=== PATIENT | male | born 1965 | race Caucasian/White ===

== ENCOUNTER 2016-07-14 21:51 | Inpatient (IN) | payer BC, OTHER ==
[~2016-07-14] VITALS: Ht 167.6 cm; Wt 62.1 kg
[~2016-07-14 21:51] MED LIST: ACID1TAB12 PO; AMLO5TAB4 PO; BLOO-129 IN; GABA100C PO; HYDR-548 PO; Hydralazine Hcl PO; INSU100V7 SQ; SEVE800T8 PO
[2016-07-14] MEDS ORDERED: ONDANSETRON HCL/PF 4 MG/2 ML VIAL ONE (22:29)
[2016-07-14] MEDS ORDERED: HYDROMORPHONE 1 MG/1 ML DISP.SYRIN ONE (22:29)
[2016-07-14] MEDS ORDERED: ASPIRIN 81 MG TAB.CHEW ONE (22:29)
[2016-07-14] MEDS ORDERED: NITROGLYCERIN 0.4 MG/TAB BOTTLE ONE (22:29)
[2016-07-14] MEDS ORDERED: NITROGLYCERIN 0.4 MG/TAB BOTTLE SL ONE (22:30)
[2016-07-14] MEDS ORDERED: NITROGLYCERIN PACKET 1 GM PACKET TD ONE (22:30)
[2016-07-14] MEDS ORDERED: NITROGLYCERIN PACKET 1 GM PACKET ONE (22:30)
[2016-07-14] MEDS ORDERED: ASPIRIN 81 MG TAB.CHEW PO ONE (22:30)
[2016-07-14] MEDS ORDERED: HYDROMORPHONE INJ 2 MG/ML DISP.SYRIN IV ONE (22:30)
[2016-07-14] MEDS ORDERED: ONDANSETRON HCL/PF 4 MG/2 ML VIAL IVP ONE (22:30)
[2016-07-14 22:38] LABS: BASOPHILS # (AUTO) 0.1 /CMM (0.0-0.2); BASOPHILS % (AUTO) 0.7 % (0.0-2.0); DIFF TOTAL % 100 %; EOSINOPHILS # (AUTO) 0.2 /CMM (0.0-0.7); HEMATOCRIT 36 % (39-51); LYMPHOCYTES # (AUTO) 2.4 /CMM (0.8-4.8); LYMPHOCYTES % (AUTO) 23.1 % (20.0-44.0); MEAN CORPUSCULAR HEMOGLOBIN 30 PG (26.0-33.0); MEAN CORPUSCULAR HGB CONC 33 g/dl (31.0-36.0); MEAN CORPUSCULAR VOLUME 90 fL (80-96); MONOCYTES # (AUTO) 1.2 /CMM (0.1-1.30); NEUTROPHILS # (AUTO) 6.4 /CMM (1.8-8.9); NEUTROPHILS % (AUTO) 62.2 % (43.0-81.0); PLATELET COUNT (AUTO) 171 /CMM (150-450); RED BLOOD CELL COUNT(AUTO) 3.99 MIL/uL (4.5-6.0); WHITE BLOOD COUNT (AUTO) 10.3 K/uL (4.3-11.0)
[2016-07-14 22:48] LABS: ANION GAP 15 (5-14); CALCIUM, SERUM 9.2 mg/dL (8.5-10.1); CARBON DIOXIDE 27 mmol/L (21-32); CHLORIDE 97 mmol/L (98-107); GFR 7 mL/min (>60); GLUCOSE 175 mg/dL (74-106); POTASSIUM 5.3 mmol/L (3.5-5.1); SODIUM SERUM 134 mmol/L (136-145); UREA NITROGEN, BLOOD 40 mg/dL (7-18)
[2016-07-14 22:50] LABS: CREATININE 8.5 mg/dL (0.6-1.3)
[2016-07-14 23:02] LABS: TROPONIN I < 0.017 ng/mL (0.00-0.056)
[2016-07-14 23:04] LABS: ALANINE AMINOTRANSFERASE 27 U/L (12-78); ALBUMIN 3.9 g/dL (3.4-5.0); ASPARTATE AMINOTRANSFERASE 18 U/L (15-37); BILIRUBIN,DIRECT 0.1 mg/dL (0.0-0.2); BILIRUBIN,TOTAL 0.4 mg/dL (0.2-1.0); INDIRECT BILIRUBIN 0.3 mg/dL (0.0-1.1); TOTAL PROTEIN, SERUM 7.9 g/dL (6.4-8.2)
[2016-07-15 01:54] LABS: INR 1.03 (0.87-1.13); PROTHROMBIN TIME 10.6 SECS (9.5-12.7)
[2016-07-15 02:25] VITALS: BP 174/99
[2016-07-15 04:00] VITALS: BP 136/93
[2016-07-15] MEDS ORDERED: hydrALAZINE HCL 25 MG TABLET ONE (04:36)
[2016-07-15] MEDS ORDERED: HYDROCODONE/APAP 10/325MG 1 EA TABLET ONE (04:37)
[2016-07-15] MEDS: HYDROCODONE/APAP 10/325MG 1 EA TABLET PO PRN ×2 (04:45→13:11)
[2016-07-15] MEDS: hydrALAZINE HCL 25 MG TABLET PO SCH ×3 (04:45→21:30)
[2016-07-15] MEDS: BLOOD SUGAR DIAGNOSTIC 1 EACH STRIP IN SCH ×4 (06:37→21:36)
[2016-07-15 08:00] VITALS: BP 85/48
[2016-07-15] MEDS: AMLODIPINE BESYLATE 5 MG TABLET PO SCH (09:00)
[2016-07-15] MEDS: GABAPENTIN 100 MG CAPSULE PO SCH ×3 (09:00→17:00)
[2016-07-15] MEDS: ACIDOPHILUS/BULGARICUS 1 EACH TAB.CHEW PO SCH ×3 (09:01→17:00)
[2016-07-15] MEDS: SEVELAMER CARBONATE 800 MG TABLET PO SCH ×3 (09:01→17:48)
[2016-07-15 12:00] VITALS: BP 105/61
[2016-07-15] MEDS: ATORVASTATIN 10 MG TABLET PO SCH (13:07)
[2016-07-15 16:00] VITALS: BP 107/60
[2016-07-15] MEDS ORDERED: SECONDARY IV SET 1 EA INFUS.SET MC ONE (17:01)
[2016-07-15] MEDS ORDERED: ALBUMIN 25% 25 GM in PREMIX 1 EA IV ONE (18:30)
[2016-07-15 20:00] VITALS: BP 145/93
[2016-07-15] MEDS: INSULIN DETEMIR 100 UNIT/ML CARTRIDGE SQ SCH (21:37)
[2016-07-16] VITALS: BP 142/68
[2016-07-16 04:00] VITALS: BP 148/80
[2016-07-16] MEDS: hydrALAZINE HCL 25 MG TABLET PO SCH ×3 (04:37→21:23)
[2016-07-16 05:42] LABS: BASOPHILS # (AUTO) 0.1 /CMM (0.0-0.2); DIFF TOTAL % 100 %; EOSINOPHILS # (AUTO) 0.3 /CMM (0.0-0.7); EOSINOPHILS % (AUTO) 2.6 % (0.0-6.0); HEMATOCRIT 38 % (39-51); HEMOGLOBIN 12.5 g/dL (13.5-17.5); LYMPHOCYTES # (AUTO) 1.9 /CMM (0.8-4.8); LYMPHOCYTES % (AUTO) 18.6 % (20.0-44.0); MEAN CORPUSCULAR HEMOGLOBIN 30 PG (26.0-33.0); MEAN CORPUSCULAR HGB CONC 33 g/dl (31.0-36.0); MEAN CORPUSCULAR VOLUME 91 fL (80-96); MONOCYTES # (AUTO) 0.9 /CMM (0.1-1.30); MONOCYTES % (AUTO) 8.6 % (2.0-12.0); NEUTROPHILS % (AUTO) 69.2 % (43.0-81.0); PLATELET COUNT (AUTO) 192 /CMM (150-450); RED BLOOD CELL COUNT(AUTO) 4.13 MIL/uL (4.5-6.0); WHITE BLOOD COUNT (AUTO) 10.1 K/uL (4.3-11.0)
[2016-07-16 05:56] LABS: CALCIUM, SERUM 9.1 mg/dL (8.5-10.1); CREATININE 8.5 mg/dL (0.6-1.3); PHOSPHORUS 4.7 mg/dL (2.5-4.9); POTASSIUM 4.5 mmol/L (3.5-5.1)
[2016-07-16] MEDS: BLOOD SUGAR DIAGNOSTIC 1 EACH STRIP IN SCH ×2 (06:37→12:43)
[2016-07-16 08:00] VITALS: BP 144/88
[2016-07-16] MEDS: GABAPENTIN 100 MG CAPSULE PO SCH ×3 (09:09→16:07)
[2016-07-16] MEDS: ACIDOPHILUS/BULGARICUS 1 EACH TAB.CHEW PO SCH ×3 (09:09→16:07)
[2016-07-16] MEDS: SEVELAMER CARBONATE 800 MG TABLET PO SCH ×3 (09:10→17:30)
[2016-07-16] MEDS: AMLODIPINE BESYLATE 5 MG TABLET PO SCH (09:10)
[2016-07-16] MEDS: ATORVASTATIN 10 MG TABLET PO SCH (09:10)
[2016-07-16 12:00] VITALS: BP 146/92
[2016-07-16] MEDS ORDERED: *INSULIN REGULAR(HUMULIN R)HUM 100 UNIT/ML VIAL SQ PRN (13:00)
[2016-07-16] MEDS ORDERED: DEXTROSE 50%-WATER 50 ML DISP.SYRIN IV PRN (13:00)
[2016-07-16] MEDS: HYDROCODONE/APAP 10/325MG 1 EA TABLET PO PRN (13:14)
[2016-07-16] MEDS: BLOOD SUGAR DIAGNOSTIC 1 EACH STRIP VI SCH ×3 (14:23→21:26)
[2016-07-16 16:00] VITALS: BP 116/73
[2016-07-16] MEDS: INSULIN REGULAR, HUMAN 100 UNIT/ML 3 ML VIAL SQ PRN (16:06)
[2016-07-16 20:00] VITALS: BP 123/74
[2016-07-16] MEDS: INSULIN DETEMIR 100 UNIT/ML CARTRIDGE SQ SCH (21:25)
[2016-07-17 04:00] VITALS: BP 122/80
[2016-07-17] MEDS: hydrALAZINE HCL 25 MG TABLET PO SCH ×2 (05:12→13:59)
[2016-07-17 06:52] LABS: BASOPHILS # (AUTO) 0.1 /CMM (0.0-0.2); BASOPHILS % (AUTO) 1.3 % (0.0-2.0); DIFF TOTAL % 100 %; EOSINOPHILS # (AUTO) 0.2 /CMM (0.0-0.7); EOSINOPHILS % (AUTO) 3.3 % (0.0-6.0); HEMATOCRIT 36 % (39-51); HEMOGLOBIN 12.1 g/dL (13.5-17.5); LYMPHOCYTES # (AUTO) 2.1 /CMM (0.8-4.8); LYMPHOCYTES % (AUTO) 34.8 % (20.0-44.0); MEAN CORPUSCULAR HEMOGLOBIN 30 PG (26.0-33.0); MEAN CORPUSCULAR HGB CONC 34 g/dl (31.0-36.0); MEAN CORPUSCULAR VOLUME 90 fL (80-96); MONOCYTES # (AUTO) 0.7 /CMM (0.1-1.30); MONOCYTES % (AUTO) 11.9 % (2.0-12.0); NEUTROPHILS # (AUTO) 2.9 /CMM (1.8-8.9); NEUTROPHILS % (AUTO) 48.7 % (43.0-81.0); PLATELET COUNT (AUTO) 189 /CMM (150-450); RED BLOOD CELL COUNT(AUTO) 3.99 MIL/uL (4.5-6.0); WHITE BLOOD COUNT (AUTO) 5.9 K/uL (4.3-11.0)
[2016-07-17 07:06] LABS: CALCIUM, SERUM 8.5 mg/dL (8.5-10.1); PHOSPHORUS 5.7 mg/dL (2.5-4.9); POTASSIUM 5.2 mmol/L (3.5-5.1)
[2016-07-17 07:26] LABS: CREATININE 11.1 mg/dL (0.6-1.3)
[2016-07-17] MEDS: BLOOD SUGAR DIAGNOSTIC 1 EACH STRIP VI SCH ×3 (07:52→17:17)
[2016-07-17 08:00] VITALS: BP 125/76
[2016-07-17] MEDS: SEVELAMER CARBONATE 800 MG TABLET PO SCH ×3 (08:00→17:17)
[2016-07-17] MEDS: INSULIN REGULAR, HUMAN 100 UNIT/ML 3 ML VIAL SQ PRN ×2 (08:04→17:22)
[2016-07-17] MEDS: ACIDOPHILUS/BULGARICUS 1 EACH TAB.CHEW PO SCH ×3 (08:05→17:17)
[2016-07-17] MEDS: ATORVASTATIN 10 MG TABLET PO SCH (09:00)
[2016-07-17] MEDS: GABAPENTIN 100 MG CAPSULE PO SCH ×3 (09:00→17:17)
[2016-07-17] MEDS ORDERED: REGADENOSON 0.4 MG/5 ML DISP.SYRIN IVP ONE (10:30)
[2016-07-17 12:00] VITALS: BP 144/84
[2016-07-17] MEDS: AMLODIPINE BESYLATE 5 MG TABLET PO SCH (12:38)
[2016-07-17 16:00] VITALS: BP 144/84
== END 2016-07-17 23:07 | disposition home or self-care (01) | DRG 205 ==
LOC: ER 21:57 → TELE1 07-15 00:30 → MEDSG1 07-16 09:28
PROVIDERS: ADMIT Nurse Practitioner Acute Care; ATTEND Nurse Practitioner Acute Care
PROC: 5A1D00Z (ICD-10-PCS; principal; 2016-07-15)
DX: M94.0 Chondrocostal junction syndrome [Tietze] (principal); N18.6 End stage renal disease; I13.2 Hypertensive heart and chronic kidney disease with heart failure and with stage 5 chronic kidney disease, or end stage renal disease; E87.1 Hypo-osmolality and hyponatremia; I50.32 Chronic diastolic (congestive) heart failure; E87.5 Hyperkalemia; Z99.2 Dependence on renal dialysis; E03.9 Hypothyroidism, unspecified; D50.9 Iron deficiency anemia, unspecified; E11.65 Type 2 diabetes mellitus with hyperglycemia; I25.10 Atherosclerotic heart disease of native coronary artery without angina pectoris; Z83.3 Family history of diabetes mellitus; Z87.891 Personal history of nicotine dependence; Z91.14 Patient's other noncompliance with medication regimen; E83.9 Disorder of mineral metabolism, unspecified; Z89.422 Acquired absence of other left toe(s); E11.22 Type 2 diabetes mellitus with diabetic chronic kidney disease
CPT/HCPCS: 36415; 71010-TC; 80048-TC; 80076-TC; 82962-TC; 83735-TC; 83880; 84100-TC; 84484-TC; 85025-TC; 85378-TC; 85730-TC; 87081-TC; 90935-TC; 93307-TC; A4216; A4606; A9502; J1170; J1815; J2405; J2785; P9047; Z7610

== ENCOUNTER 2016-08-08 10:13 | Inpatient (IN) | payer BC, OTHER ==
[~2016-08-08] VITALS: Ht 172.7 cm; Wt 66.2 kg
[2016-08-08] MEDS ORDERED: HYDROMORPHONE 1 MG/1 ML DISP.SYRIN ONE (10:18)
[2016-08-08 10:30] LABS: BASOPHILS # (AUTO) 0.3 /CMM (0.0-0.2); BASOPHILS % (AUTO) 2.6 % (0.0-2.0); DIFF TOTAL % 100 %; EOSINOPHILS # (AUTO) 0.2 /CMM (0.0-0.7); HEMATOCRIT 42 % (39-51); LYMPHOCYTES # (AUTO) 1.8 /CMM (0.8-4.8); LYMPHOCYTES % (AUTO) 15.9 % (20.0-44.0); MEAN CORPUSCULAR HEMOGLOBIN 29 PG (26.0-33.0); MEAN CORPUSCULAR HGB CONC 32 g/dl (31.0-36.0); MEAN CORPUSCULAR VOLUME 91 fL (80-96); MONOCYTES # (AUTO) 0.8 /CMM (0.1-1.30); MONOCYTES % (AUTO) 7.2 % (2.0-12.0); NEUTROPHILS # (AUTO) 8.3 /CMM (1.8-8.9); NEUTROPHILS % (AUTO) 72.3 % (43.0-81.0); PLATELET COUNT (AUTO) 119 /CMM (150-450); RED BLOOD CELL COUNT(AUTO) 4.55 MIL/uL (4.5-6.0); WHITE BLOOD COUNT (AUTO) 11.4 K/uL (4.3-11.0)
[2016-08-08] MEDS ORDERED: HYDROMORPHONE 1 MG/1 ML DISP.SYRIN IV ONE (10:30)
[2016-08-08 10:41] LABS: ANION GAP 17 (5-14); CALCIUM, SERUM 9.1 mg/dL (8.5-10.1); CARBON DIOXIDE 24 mmol/L (21-32); CHLORIDE 102 mmol/L (98-107); GFR 16 mL/min (>60); GLUCOSE 100 mg/dL (74-106); POTASSIUM 4.8 mmol/L (3.5-5.1); SODIUM SERUM 138 mmol/L (136-145); UREA NITROGEN, BLOOD 15 mg/dL (7-18)
[2016-08-08 10:44] LABS: INR 1.15 (0.87-1.13); PROTHROMBIN TIME 12.1 SECS (9.5-12.7)
[2016-08-08 10:47] LABS: ALANINE AMINOTRANSFERASE 34 U/L (12-78); ALBUMIN 4.1 g/dL (3.4-5.0); ASPARTATE AMINOTRANSFERASE 30 U/L (15-37); BILIRUBIN,DIRECT 0.2 mg/dL (0.0-0.2); INDIRECT BILIRUBIN 0.8 mg/dL (0.0-1.1); TOTAL PROTEIN, SERUM 8.6 g/dL (6.4-8.2)
[2016-08-08 10:48] LABS: TROPONIN I < 0.017 ng/mL (0.00-0.056)
[2016-08-08] MEDS ORDERED: CALC667T2 PO (10:54)
[2016-08-08] MEDS ORDERED: HYDR-552 PO (10:54)
[2016-08-08] MEDS ORDERED: INSU100I14 SQ (10:54)
[2016-08-08] MEDS ORDERED: AMLO10TA2 PO (10:54)
[2016-08-08 11:02] LABS: PARTIAL THROMBOPLASTIN TIME > 240 SEC (23-34)
[2016-08-08 11:12] LABS: LACTIC ACID 2.3 mmol/L (0.4-2.0)
[2016-08-08] MEDS ORDERED: IV SET PRIMARY 1 EA INFUS.SET MC ONE (11:18)
[2016-08-08] MEDS ORDERED: IV NS 0.9% 2,000 ML ONE (11:18)
[2016-08-08] MEDS ORDERED: IV NS 0.9% 500 ML IV ONE (11:18)
[2016-08-08 11:29] LABS: *LACTIC ACID REFLEX FLAG YES
[2016-08-08] MEDS ORDERED: IV NS 0.9% 1,000 ML BAG IV ONE (11:30)
[2016-08-08] MEDS ORDERED: VANCOMYCIN 1 GM in IV D5W 250 ML IV ONE (11:30)
[2016-08-08] MEDS ORDERED: GENTAMICIN 80 MG in IV D5W 50 ML IV ONE (11:30)
[2016-08-08] MEDS ORDERED: IV SET PRIMARY PUMP SET 1 EA INFUS.SET MC ONE ×2 (11:36→13:08)
[2016-08-08 12:00] VITALS: BP 124/83
[2016-08-08] MEDS ORDERED: ZOLPIDEM TARTRATE 5 MG TABLET PO PRN (12:30)
[2016-08-08] MEDS ORDERED: MAGNESIUM HYDROXIDE 30 ML UDC PO PRN (12:30)
[2016-08-08] MEDS ORDERED: MAG HYDROX/AL HYDROX/SIMETH 30 ML UDC PO PRN (12:30)
[2016-08-08] MEDS ORDERED: Z GUARD REMEDY 2 OZ OINT TP PRN (12:30)
[2016-08-08] MEDS ORDERED: ONDANSETRON HCL/PF 4 MG/2 ML VIAL IVP PRN (12:30)
[2016-08-08] MEDS ORDERED: ACETAMINOPHEN 325 MG TABLET PO PRN (12:30)
[2016-08-08 12:40] VITALS: BP 124/83
[2016-08-08] MEDS: SEVELAMER CARBONATE 800 MG TABLET PO SCH ×2 (13:00→17:00)
[2016-08-08] MEDS: GABAPENTIN 100 MG CAPSULE PO SCH ×2 (13:00→16:48)
[2016-08-08] MEDS: INSULIN ASPART NOVOLOG 100 UNIT/ML CARTRIDGE SQ SCH ×2 (13:00→16:59)
[2016-08-08] MEDS: CALCIUM ACETATE 667 MG TABLET PO SCH ×2 (13:01→17:00)
[2016-08-08] MEDS ORDERED: FEE PK DOSING 1 MIN EA MC ONE (13:42)
[2016-08-08] MEDS ORDERED: SECONDARY IV SET 1 EA INFUS.SET MC ONE (15:24)
[2016-08-08] MEDS: PIPERACILLIN /TAZOBACTAM 2.25 G in IV D5W 50 ML IV SCH ×2 (15:30→21:19)
[2016-08-08] MEDS: BLOOD SUGAR DIAGNOSTIC 1 EACH STRIP IN SCH ×2 (16:46→21:19)
[2016-08-08] MEDS: INSULIN REGULAR, HUMAN 100 UNIT/ML 3 ML VIAL SQ PRN (16:59)
[2016-08-08 20:00] VITALS: BP 109/76
[2016-08-08 20:06] VITALS: BP 109/73
[2016-08-08] MEDS ORDERED: PIPERACILLIN /TAZOBACTAM 3.375 G in IV D5W 100 ML IV SCH (21:00)
[2016-08-08] MEDS ORDERED: IV NS 0.9% 250 ML IV ONE (21:12)
[2016-08-08] MEDS: DEXTROSE 50%-WATER 50 ML DISP.SYRIN IV PRN (21:42)
[2016-08-08] MEDS ORDERED: INSULIN DETEMIR 100 UNIT/ML CARTRIDGE SQ SCH (22:00)
[2016-08-08 23:00] VITALS: BP 162/78
[2016-08-09] VITALS (9 sets, daily range): BP systolic 110–131; BP diastolic 62–78
[2016-08-09] MEDS: PIPERACILLIN /TAZOBACTAM 2.25 G in IV D5W 50 ML IV SCH (05:38)
[2016-08-09] MEDS: BLOOD SUGAR DIAGNOSTIC 1 EACH STRIP IN SCH ×4 (06:20→21:52)
[2016-08-09] MEDS: DEXTROSE 50%-WATER 50 ML DISP.SYRIN IV PRN (06:24)
[2016-08-09 06:45] LABS: BASOPHILS # (AUTO) 0.1 /CMM (0.0-0.2); BASOPHILS % (AUTO) 1.9 % (0.0-2.0); DIFF TOTAL % 100 %; EOSINOPHILS # (AUTO) 0.3 /CMM (0.0-0.7); EOSINOPHILS % (AUTO) 3.7 % (0.0-6.0); HEMATOCRIT 34 % (39-51); LYMPHOCYTES # (AUTO) 2.2 /CMM (0.8-4.8); LYMPHOCYTES % (AUTO) 32.1 % (20.0-44.0); MEAN CORPUSCULAR HEMOGLOBIN 30 PG (26.0-33.0); MEAN CORPUSCULAR HGB CONC 32 g/dl (31.0-36.0); MEAN CORPUSCULAR VOLUME 92 fL (80-96); MONOCYTES # (AUTO) 0.9 /CMM (0.1-1.30); MONOCYTES % (AUTO) 12.4 % (2.0-12.0); NEUTROPHILS # (AUTO) 3.4 /CMM (1.8-8.9); NEUTROPHILS % (AUTO) 49.9 % (43.0-81.0); PLATELET COUNT (AUTO) 129 /CMM (150-450); RED BLOOD CELL COUNT(AUTO) 3.72 MIL/uL (4.5-6.0); WHITE BLOOD COUNT (AUTO) 6.9 K/uL (4.3-11.0)
[2016-08-09 07:17] LABS: ALBUMIN 3.1 g/dL (3.4-5.0); BILIRUBIN,TOTAL 0.6 mg/dL (0.2-1.0); CALCIUM, SERUM 8.2 mg/dL (8.5-10.1); CREATININE 6.2 mg/dL (0.6-1.3); PHOSPHORUS 4.5 mg/dL (2.5-4.9); POTASSIUM 5.9 mmol/L (3.5-5.1); TOTAL PROTEIN, SERUM 6.8 g/dL (6.4-8.2)
[2016-08-09] MEDS: SEVELAMER CARBONATE 800 MG TABLET PO SCH ×3 (08:31→17:29)
[2016-08-09] MEDS: PANTOPRAZOLE 40 MG TABLET.DR PO SCH (08:31)
[2016-08-09] MEDS: AMLODIPINE BESYLATE 10 MG TABLET PO SCH (08:32)
[2016-08-09] MEDS: CALCIUM ACETATE 667 MG TABLET PO SCH ×3 (08:32→17:29)
[2016-08-09] MEDS: GABAPENTIN 100 MG CAPSULE PO SCH ×3 (08:32→17:29)
[2016-08-09] MEDS: INSULIN ASPART NOVOLOG 100 UNIT/ML CARTRIDGE SQ SCH ×3 (08:37→17:34)
[2016-08-09] MEDS ORDERED: VANCOMYCIN 500 MG in IV D5W 100 ML IV PRN (14:00)
[2016-08-09] MEDS ORDERED: LACTOBACILLUS RHAMNOSUS GG 1 EACH CAP.SPRINK PO SCH (17:00)
[2016-08-09] MEDS: INSULIN DETEMIR 100 UNIT/ML CARTRIDGE SQ SCH (21:52)
[2016-08-10] VITALS (8 sets, daily range): BP systolic 114–130; BP diastolic 68–81
[2016-08-10] MEDS: HYDROCODONE/APAP 5/325MG 1 EACH TABLET PO PRN ×2 (00:49→22:40)
[2016-08-10] MEDS: BLOOD SUGAR DIAGNOSTIC 1 EACH STRIP IN SCH ×4 (05:57→21:27)
[2016-08-10] MEDS: INSULIN REGULAR, HUMAN 100 UNIT/ML 3 ML VIAL SQ PRN ×3 (06:00→18:32)
[2016-08-10 07:31] LABS: CALCIUM, SERUM 8.6 mg/dL (8.5-10.1); CREATININE 6.8 mg/dL (0.6-1.3); POTASSIUM 5.1 mmol/L (3.5-5.1)
[2016-08-10 07:53] LABS: BASOPHILS # (AUTO) 0.1 /CMM (0.0-0.2); BASOPHILS % (AUTO) 2.2 % (0.0-2.0); DIFF TOTAL % 100 %; EOSINOPHILS # (AUTO) 0.4 /CMM (0.0-0.7); EOSINOPHILS % (AUTO) 8.2 % (0.0-6.0); HEMATOCRIT 34 % (39-51); HEMOGLOBIN 11.1 g/dL (13.5-17.5); LYMPHOCYTES # (AUTO) 2.1 /CMM (0.8-4.8); LYMPHOCYTES % (AUTO) 39.1 % (20.0-44.0); MEAN CORPUSCULAR HEMOGLOBIN 30 PG (26.0-33.0); MEAN CORPUSCULAR HGB CONC 33 g/dl (31.0-36.0); MEAN CORPUSCULAR VOLUME 91 fL (80-96); MONOCYTES # (AUTO) 0.8 /CMM (0.1-1.30); MONOCYTES % (AUTO) 14.5 % (2.0-12.0); PLATELET COUNT (AUTO) 121 /CMM (150-450); RED BLOOD CELL COUNT(AUTO) 3.72 MIL/uL (4.5-6.0); WHITE BLOOD COUNT (AUTO) 5.5 K/uL (4.3-11.0)
[2016-08-10] MEDS: AMLODIPINE BESYLATE 10 MG TABLET PO SCH (08:11)
[2016-08-10] MEDS: SEVELAMER CARBONATE 800 MG TABLET PO SCH ×3 (08:11→18:40)
[2016-08-10] MEDS: GABAPENTIN 100 MG CAPSULE PO SCH ×3 (08:11→18:40)
[2016-08-10] MEDS: PANTOPRAZOLE 40 MG TABLET.DR PO SCH (08:12)
[2016-08-10] MEDS: CALCIUM ACETATE 667 MG TABLET PO SCH ×3 (08:12→18:40)
[2016-08-10] MEDS: INSULIN ASPART NOVOLOG 100 UNIT/ML CARTRIDGE SQ SCH ×3 (08:27→18:28)
[2016-08-10] MEDS ORDERED: VANCOMYCIN 500 MG in IV D5W 100 ML IV PRN (13:30)
[2016-08-10] MEDS ORDERED: VANCOMYCIN 1 GM in IV D5W 250 ML IV ONE (16:00)
[2016-08-10] MEDS: INSULIN DETEMIR 100 UNIT/ML CARTRIDGE SQ SCH (21:32)
[2016-08-11] MEDS: BLOOD SUGAR DIAGNOSTIC 1 EACH STRIP IN SCH ×4 (06:34→21:58)
[2016-08-11 07:15] LABS: BASOPHILS # (AUTO) 0.1 /CMM (0.0-0.2); BASOPHILS % (AUTO) 1.6 % (0.0-2.0); DIFF TOTAL % 100 %; EOSINOPHILS # (AUTO) 0.5 /CMM (0.0-0.7); EOSINOPHILS % (AUTO) 7.1 % (0.0-6.0); HEMATOCRIT 35 % (39-51); HEMOGLOBIN 11.6 g/dL (13.5-17.5); LYMPHOCYTES # (AUTO) 2.6 /CMM (0.8-4.8); LYMPHOCYTES % (AUTO) 37.7 % (20.0-44.0); MEAN CORPUSCULAR HEMOGLOBIN 30 PG (26.0-33.0); MEAN CORPUSCULAR HGB CONC 33 g/dl (31.0-36.0); MEAN CORPUSCULAR VOLUME 91 fL (80-96); MONOCYTES # (AUTO) 0.8 /CMM (0.1-1.30); MONOCYTES % (AUTO) 12.2 % (2.0-12.0); NEUTROPHILS # (AUTO) 2.8 /CMM (1.8-8.9); NEUTROPHILS % (AUTO) 41.4 % (43.0-81.0); PLATELET COUNT (AUTO) 142 /CMM (150-450); RED BLOOD CELL COUNT(AUTO) 3.86 MIL/uL (4.5-6.0); WHITE BLOOD COUNT (AUTO) 6.9 K/uL (4.3-11.0)
[2016-08-11 07:17] LABS: CALCIUM, SERUM 8.8 mg/dL (8.5-10.1); POTASSIUM 5.5 mmol/L (3.5-5.1)
[2016-08-11 08:00] VITALS: BP 118/75
[2016-08-11] MEDS: CALCIUM ACETATE 667 MG TABLET PO SCH ×3 (08:40→17:14)
[2016-08-11] MEDS: PANTOPRAZOLE 40 MG TABLET.DR PO SCH (08:40)
[2016-08-11] MEDS: SEVELAMER CARBONATE 800 MG TABLET PO SCH ×3 (08:41→17:14)
[2016-08-11] MEDS: GABAPENTIN 100 MG CAPSULE PO SCH ×3 (08:42→17:14)
[2016-08-11] MEDS: INSULIN ASPART NOVOLOG 100 UNIT/ML CARTRIDGE SQ SCH ×3 (08:49→17:15)
[2016-08-11] MEDS: AMLODIPINE BESYLATE 10 MG TABLET PO SCH (08:49)
[2016-08-11] MEDS: INSULIN REGULAR, HUMAN 100 UNIT/ML 3 ML VIAL SQ PRN ×2 (12:14→17:16)
[2016-08-11] MEDS: HYDROCODONE/APAP 5/325MG 1 EACH TABLET PO PRN (13:57)
[2016-08-11 16:00] VITALS: BP 111/68
[2016-08-11 20:00] VITALS: BP 101/60
[2016-08-11] MEDS: PIPERACILLIN /TAZOBACTAM 2.25 G in IV D5W 50 ML IV SCH (21:58)
[2016-08-11] MEDS: INSULIN DETEMIR 100 UNIT/ML CARTRIDGE SQ SCH (22:01)
[2016-08-11] MEDS ORDERED: SECONDARY IV SET 1 EA INFUS.SET MC ONE (22:08)
[2016-08-12] MEDS: PIPERACILLIN /TAZOBACTAM 2.25 G in IV D5W 50 ML IV SCH ×3 (05:12→21:57)
[2016-08-12] MEDS: BLOOD SUGAR DIAGNOSTIC 1 EACH STRIP IN SCH ×4 (06:57→22:34)
[2016-08-12] MEDS: INSULIN REGULAR, HUMAN 100 UNIT/ML 3 ML VIAL SQ PRN ×3 (06:59→17:34)
[2016-08-12 07:00] LABS: CALCIUM, SERUM 8.2 mg/dL (8.5-10.1); POTASSIUM 5.2 mmol/L (3.5-5.1)
[2016-08-12 07:03] LABS: CREATININE 9.1 mg/dL (0.6-1.3)
[2016-08-12 08:00] VITALS: BP 116/75
[2016-08-12] MEDS: AMLODIPINE BESYLATE 10 MG TABLET PO SCH (08:28)
[2016-08-12] MEDS: SEVELAMER CARBONATE 800 MG TABLET PO SCH ×3 (08:29→17:33)
[2016-08-12] MEDS: GABAPENTIN 100 MG CAPSULE PO SCH ×3 (08:29→17:33)
[2016-08-12] MEDS: PANTOPRAZOLE 40 MG TABLET.DR PO SCH (08:29)
[2016-08-12] MEDS: CALCIUM ACETATE 667 MG TABLET PO SCH ×3 (08:29→17:33)
[2016-08-12] MEDS: INSULIN ASPART NOVOLOG 100 UNIT/ML CARTRIDGE SQ SCH ×3 (09:27→17:33)
[2016-08-12] MEDS ORDERED: SECONDARY IV SET 1 EA INFUS.SET MC ONE (11:18)
[2016-08-12] MEDS ORDERED: ALBUMIN 25% 25 GM in PREMIX 1 EA IV ONE (11:30)
[2016-08-12 16:00] VITALS: BP 136/81
[2016-08-12 20:00] VITALS: BP 114/71
[2016-08-12] MEDS: INSULIN DETEMIR 100 UNIT/ML CARTRIDGE SQ SCH (22:44)
[2016-08-13] VITALS: BP 114/67
[2016-08-13] MEDS: PIPERACILLIN /TAZOBACTAM 2.25 G in IV D5W 50 ML IV SCH ×2 (05:32→12:00)
[2016-08-13 07:26] LABS: CALCIUM, SERUM 8.6 mg/dL (8.5-10.1); CREATININE 7.4 mg/dL (0.6-1.3); POTASSIUM 4.5 mmol/L (3.5-5.1)
[2016-08-13 08:00] VITALS: BP 126/78
[2016-08-13] MEDS: PANTOPRAZOLE 40 MG TABLET.DR PO SCH (08:02)
[2016-08-13] MEDS: SEVELAMER CARBONATE 800 MG TABLET PO SCH ×3 (08:02→17:13)
[2016-08-13] MEDS: BLOOD SUGAR DIAGNOSTIC 1 EACH STRIP IN SCH ×4 (08:02→23:02)
[2016-08-13] MEDS: CALCIUM ACETATE 667 MG TABLET PO SCH ×3 (08:02→17:13)
[2016-08-13] MEDS: INSULIN ASPART NOVOLOG 100 UNIT/ML CARTRIDGE SQ SCH ×3 (08:03→17:00)
[2016-08-13] MEDS: AMLODIPINE BESYLATE 10 MG TABLET PO SCH (08:03)
[2016-08-13] MEDS: GABAPENTIN 100 MG CAPSULE PO SCH ×3 (08:03→17:13)
[2016-08-13 08:13] VITALS: BP 126/78
[2016-08-13] MEDS: DOCUSATE SODIUM 100 MG CAPSULE PO SCH ×2 (09:00→17:13)
[2016-08-13] MEDS: INSULIN REGULAR, HUMAN 100 UNIT/ML 3 ML VIAL SQ PRN (12:03)
[2016-08-13 16:00] VITALS: BP 109/69
[2016-08-13 16:15] VITALS: BP 109/69
[2016-08-13 20:00] VITALS: BP 114/67
[2016-08-13] MEDS: INSULIN DETEMIR 100 UNIT/ML CARTRIDGE SQ SCH (23:03)
[2016-08-14 06:36] LABS: BASOPHILS # (AUTO) 0.1 /CMM (0.0-0.2); BASOPHILS % (AUTO) 1.7 % (0.0-2.0); DIFF TOTAL % 100 %; EOSINOPHILS # (AUTO) 0.5 /CMM (0.0-0.7); EOSINOPHILS % (AUTO) 7.2 % (0.0-6.0); HEMATOCRIT 33 % (39-51); LYMPHOCYTES # (AUTO) 2.5 /CMM (0.8-4.8); LYMPHOCYTES % (AUTO) 34.1 % (20.0-44.0); MEAN CORPUSCULAR HEMOGLOBIN 30 PG (26.0-33.0); MEAN CORPUSCULAR HGB CONC 33 g/dl (31.0-36.0); MEAN CORPUSCULAR VOLUME 90 fL (80-96); MONOCYTES # (AUTO) 0.7 /CMM (0.1-1.30); MONOCYTES % (AUTO) 9.7 % (2.0-12.0); NEUTROPHILS # (AUTO) 3.4 /CMM (1.8-8.9); NEUTROPHILS % (AUTO) 47.3 % (43.0-81.0); PLATELET COUNT (AUTO) 121 /CMM (150-450); RED BLOOD CELL COUNT(AUTO) 3.67 MIL/uL (4.5-6.0); WHITE BLOOD COUNT (AUTO) 7.2 K/uL (4.3-11.0)
[2016-08-14] MEDS: PANTOPRAZOLE 40 MG TABLET.DR PO SCH (06:36)
[2016-08-14] MEDS: BLOOD SUGAR DIAGNOSTIC 1 EACH STRIP IN SCH ×4 (06:37→22:23)
[2016-08-14 07:00] LABS: CALCIUM, SERUM 8.5 mg/dL (8.5-10.1); POTASSIUM 4.8 mmol/L (3.5-5.1)
[2016-08-14 07:01] LABS: CREATININE 9.1 mg/dL (0.6-1.3)
[2016-08-14 08:00] VITALS: BP 126/81
[2016-08-14] MEDS: CALCIUM ACETATE 667 MG TABLET PO SCH ×3 (08:12→17:15)
[2016-08-14] MEDS: GABAPENTIN 100 MG CAPSULE PO SCH ×3 (08:12→17:15)
[2016-08-14] MEDS: SEVELAMER CARBONATE 800 MG TABLET PO SCH ×3 (08:12→17:15)
[2016-08-14] MEDS: DOCUSATE SODIUM 100 MG CAPSULE PO SCH ×2 (08:13→17:15)
[2016-08-14] MEDS: AMLODIPINE BESYLATE 10 MG TABLET PO SCH (08:14)
[2016-08-14] MEDS: INSULIN ASPART NOVOLOG 100 UNIT/ML CARTRIDGE SQ SCH ×3 (08:14→17:13)
[2016-08-14] MEDS: AMPICILLIN SODIUM 2 GM in IV NS 0.9% 100 ML IV SCH (08:17)
[2016-08-14 08:55] VITALS: BP 126/81
[2016-08-14] MEDS: INSULIN REGULAR, HUMAN 100 UNIT/ML 3 ML VIAL SQ PRN ×2 (11:40→17:15)
[2016-08-14 16:00] VITALS: BP 124/77
[2016-08-14 20:00] VITALS: BP 115/64
[2016-08-14] MEDS ORDERED: SECONDARY IV SET 1 EA INFUS.SET MC ONE (20:22)
[2016-08-14] MEDS ORDERED: ALBUMIN 25% 12.5 GM in PREMIX 1 EA IV PRN (20:30)
[2016-08-14] MEDS: INSULIN DETEMIR 100 UNIT/ML CARTRIDGE SQ SCH (22:22)
[2016-08-15] MEDS: HYDROCODONE/APAP 5/325MG 1 EACH TABLET PO PRN (03:23)
[2016-08-15 06:50] LABS: CALCIUM, SERUM 8.3 mg/dL (8.5-10.1); POTASSIUM 5.2 mmol/L (3.5-5.1)
[2016-08-15 06:53] LABS: CREATININE 8.5 mg/dL (0.6-1.3)
[2016-08-15] MEDS: PANTOPRAZOLE 40 MG TABLET.DR PO SCH (07:58)
[2016-08-15 08:00] VITALS: BP 118/76
[2016-08-15] MEDS: SEVELAMER CARBONATE 800 MG TABLET PO SCH ×3 (08:25→17:24)
[2016-08-15] MEDS: AMPICILLIN SODIUM 2 GM in IV NS 0.9% 100 ML IV SCH (08:25)
[2016-08-15] MEDS: DOCUSATE SODIUM 100 MG CAPSULE PO SCH ×2 (08:25→16:32)
[2016-08-15] MEDS: CALCIUM ACETATE 667 MG TABLET PO SCH ×3 (08:25→17:24)
[2016-08-15] MEDS: GABAPENTIN 100 MG CAPSULE PO SCH ×3 (08:26→16:32)
[2016-08-15] MEDS: AMLODIPINE BESYLATE 10 MG TABLET PO SCH (08:26)
[2016-08-15] MEDS ORDERED: IV SET PRIMARY PUMP SET 1 EA INFUS.SET MC ONE (08:28)
[2016-08-15] MEDS ORDERED: IV NS 0.9% 250 ML IV ONE (08:28)
[2016-08-15] MEDS ORDERED: SECONDARY IV SET 1 EA INFUS.SET MC ONE (08:28)
[2016-08-15] MEDS: INSULIN ASPART NOVOLOG 100 UNIT/ML CARTRIDGE SQ SCH ×3 (08:54→17:23)
[2016-08-15] MEDS: BLOOD SUGAR DIAGNOSTIC 1 EACH STRIP IN SCH ×4 (12:33→17:26)
[2016-08-15 16:00] VITALS: BP 108/76
[2016-08-15 20:00] VITALS: BP 113/69
[2016-08-15] MEDS: INSULIN DETEMIR 100 UNIT/ML CARTRIDGE SQ SCH (21:41)
[2016-08-16] MEDS: PANTOPRAZOLE 40 MG TABLET.DR PO SCH (06:37)
[2016-08-16] MEDS: BLOOD SUGAR DIAGNOSTIC 1 EACH STRIP IN SCH ×4 (06:38→22:27)
[2016-08-16 07:47] LABS: CALCIUM, SERUM 8.3 mg/dL (8.5-10.1); POTASSIUM 6.1 mmol/L (3.5-5.1)
[2016-08-16 08:00] VITALS: BP 118/72
[2016-08-16 08:09] LABS: CREATININE 10.3 mg/dL (0.6-1.3)
[2016-08-16] MEDS: AMPICILLIN SODIUM 2 GM in IV NS 0.9% 100 ML IV SCH (08:46)
[2016-08-16] MEDS: CALCIUM ACETATE 667 MG TABLET PO SCH ×3 (08:47→17:19)
[2016-08-16] MEDS: AMLODIPINE BESYLATE 10 MG TABLET PO SCH (08:47)
[2016-08-16] MEDS: SEVELAMER CARBONATE 800 MG TABLET PO SCH ×3 (08:47→17:19)
[2016-08-16] MEDS: GABAPENTIN 100 MG CAPSULE PO SCH ×3 (08:47→17:19)
[2016-08-16] MEDS: DOCUSATE SODIUM 100 MG CAPSULE PO SCH ×2 (08:47→17:19)
[2016-08-16] MEDS: INSULIN ASPART NOVOLOG 100 UNIT/ML CARTRIDGE SQ SCH ×3 (08:48→17:18)
[2016-08-16 16:00] VITALS: BP 137/88
[2016-08-16 20:00] VITALS: BP 131/80
[2016-08-16] MEDS: INSULIN DETEMIR 100 UNIT/ML CARTRIDGE SQ SCH (22:36)
[2016-08-17] MEDS: BLOOD SUGAR DIAGNOSTIC 1 EACH STRIP IN SCH ×3 (06:03→17:42)
[2016-08-17 06:43] LABS: CALCIUM, SERUM 8.3 mg/dL (8.5-10.1); POTASSIUM 4.6 mmol/L (3.5-5.1)
[2016-08-17 07:59] LABS: CREATININE 7.5 mg/dL (0.6-1.3)
[2016-08-17 08:00] VITALS: BP 131/82
[2016-08-17] MEDS: PANTOPRAZOLE 40 MG TABLET.DR PO SCH (08:48)
[2016-08-17] MEDS: DOCUSATE SODIUM 100 MG CAPSULE PO SCH ×2 (08:48→17:49)
[2016-08-17] MEDS: CALCIUM ACETATE 667 MG TABLET PO SCH ×3 (08:48→18:30)
[2016-08-17] MEDS: GABAPENTIN 100 MG CAPSULE PO SCH ×3 (08:48→17:49)
[2016-08-17] MEDS: SEVELAMER CARBONATE 800 MG TABLET PO SCH ×3 (08:48→18:30)
[2016-08-17] MEDS: AMLODIPINE BESYLATE 10 MG TABLET PO SCH (08:49)
[2016-08-17] MEDS: INSULIN ASPART NOVOLOG 100 UNIT/ML CARTRIDGE SQ SCH ×3 (08:53→17:00)
[2016-08-17] MEDS: AMPICILLIN SODIUM 2 GM in IV NS 0.9% 100 ML IV SCH (08:54)
[2016-08-17 16:00] VITALS: BP_SYST 121; BP_SYST 137; BP_DIAS 71; BP_DIAS 84
[2016-08-17 20:00] VITALS: BP 135/83
== END 2016-08-17 21:45 | disposition home health service (06) | DRG 919 ==
LOC: ER 10:16 → TELE 12:31 → MED 08-10 08:51
PROVIDERS: ADMIT Family Medicine; ATTEND Family Medicine
PROC: 5A1D60Z (ICD-10-PCS; principal; 2016-08-09)
DX: T85.79XA Infection and inflammatory reaction due to other internal prosthetic devices, implants and grafts, initial encounter (principal); N18.6 End stage renal disease; A41.9 Sepsis, unspecified organism; G93.40 Encephalopathy, unspecified; J15.6 Pneumonia due to other Gram-negative bacteria; J15.9 Unspecified bacterial pneumonia; I12.0 Hypertensive chronic kidney disease with stage 5 chronic kidney disease or end stage renal disease; L03.90 Cellulitis, unspecified; K81.0 Acute cholecystitis; E87.2 Acidosis; E11.649 Type 2 diabetes mellitus with hypoglycemia without coma; E11.22 Type 2 diabetes mellitus with diabetic chronic kidney disease; Z99.2 Dependence on renal dialysis; D69.6 Thrombocytopenia, unspecified; D64.9 Anemia, unspecified; E11.69 Type 2 diabetes mellitus with other specified complication; E11.39 Type 2 diabetes mellitus with other diabetic ophthalmic complication; B34.9 Viral infection, unspecified; G89.29 Other chronic pain; Z87.891 Personal history of nicotine dependence; E83.51 Hypocalcemia; E87.5 Hyperkalemia; E87.70 Fluid overload, unspecified; H54.0 Blindness, both eyes; I25.10 Atherosclerotic heart disease of native coronary artery without angina pectoris; I52 Other heart disorders in diseases classified elsewhere; K56.41 Fecal impaction
CPT/HCPCS: 36415; 71010-TC; 74000-TC; 76705-TC; 80048-TC; 80053-TC; 80076-TC; 80202-TC; 82962-TC; 83605-TC; 83735-TC; 84100-TC; 84484-TC; 85025-TC; 85730-TC; 86850-TC; 87040-TC; 87081-TC; 87186-TC; 87400; 90935-TC; 93307-TC; 97001-TC; 97003-TC; 97110-TC; 97116-TC; 97530-TC; A4216; A4606; A6403; J0290; J1170; J1580; J1815; J2405; J2543; J3370; J7030; J7040; J7050; J7060; P9047; Z7610

== ENCOUNTER 2016-10-27 12:13 | Emergency (ER) | payer BC, OTHER ==
[~2016-10-27] VITALS: Ht 167.6 cm; Wt 67.6 kg
[~2016-10-27 12:13] MED LIST changes: -ACID1TAB12 PO; +AMLO10TA2 PO; -AMLO5TAB4 PO; -BLOO-129 IN; +CALC667T2 PO; -HYDR-548 PO; +HYDR-552 PO; -Hydralazine Hcl PO; +INSU100I14 SQ
--- NOTE | 2016-10-27 12:40 | NUR ---
PT BIBA FROM [facility] FOR GENERALIZED WEAKNESS S/P DIALYSIS. NOTED MOANING, RESLTESS, AMS. VSS. LAFLEUR AT FOR EVAL. SAFETY AND COMFORT MEASURES PROVIDED. WILL MONITOR.
[2016-10-27] MEDS ORDERED: MORPHINE SULFATE INJ 4 MG/ML DISP.SYRIN ONE ×2 (12:45→14:41)
[2016-10-27 12:55] LABS: BASOPHILS # (AUTO) 0.1 /CMM (0.0-0.2); BASOPHILS % (AUTO) 1.7 % (0.0-2.0); EOSINOPHILS # (AUTO) 0.4 /CMM (0.0-0.7); EOSINOPHILS % (AUTO) 4.9 % (0.0-6.0); HEMATOCRIT 36 % (39-51); HEMOGLOBIN 11.4 g/dL (13.5-17.5); LYMPHOCYTES # (AUTO) 2.3 /CMM (0.8-4.8); LYMPHOCYTES % (AUTO) 30.8 % (20.0-44.0); MEAN CORPUSCULAR HEMOGLOBIN 29 PG (26.0-33.0); MEAN CORPUSCULAR HGB CONC 32 g/dl (31.0-36.0); MEAN CORPUSCULAR VOLUME 90 fL (80-96); MONOCYTES # (AUTO) 0.8 /CMM (0.1-1.30); MONOCYTES % (AUTO) 10.3 % (2.0-12.0); NEUTROPHILS % (AUTO) 52.3 % (43.0-81.0); PLATELET COUNT (AUTO) 240 /CMM (150-450); RED BLOOD CELL COUNT(AUTO) 3.98 MIL/uL (4.5-6.0); WHITE BLOOD COUNT (AUTO) 7.6 K/uL (4.3-11.0)
[2016-10-27] MEDS: MORPHINE SULFATE INJ 2 MG/ML DISP.SYRIN IV ONE ×2 (12:55→14:46)
--- NOTE | 2016-10-27 13:00 | NUR ---
PT MEDICATED ORDERED.
[2016-10-27 13:07] LABS: CALCIUM, SERUM 9.1 mg/dL (8.5-10.1); CARBON DIOXIDE 29 mmol/L (21-32); CHLORIDE 101 mmol/L (98-107); CREATININE 4.9 mg/dL (0.6-1.3); GFR 13 mL/min (>60); GLUCOSE 122 mg/dL (74-106); POTASSIUM 4.5 mmol/L (3.5-5.1); SODIUM SERUM 140 mmol/L (136-145); UREA NITROGEN, BLOOD 19 mg/dL (7-18)
[2016-10-27 13:17] LABS: TROPONIN I < 0.017 ng/mL (0.00-0.056)
[2016-10-27 13:24] LABS: ALANINE AMINOTRANSFERASE 30 U/L (12-78); ALBUMIN 3.9 g/dL (3.4-5.0); ALKALINE PHOSPHATASE 120 U/L (46-116); ASPARTATE AMINOTRANSFERASE 32 U/L (15-37); BILIRUBIN,DIRECT 0.2 mg/dL (0.0-0.2); BILIRUBIN,TOTAL 0.6 mg/dL (0.2-1.0); TOTAL PROTEIN, SERUM 8.4 g/dL (6.4-8.2)
[2016-10-27] MEDS ORDERED: oxyCODONE/APAP (5/325 MG) 1 UDTAB TABLET ONE (13:24)
[2016-10-27] MEDS: oxyCODONE/APAP (5/325 MG) 1 UDTAB TABLET PO ONE (13:26)
[2016-10-27 14:09] LABS: INR 1.13 (0.87-1.13); PROTHROMBIN TIME 12.2 SECS (9.5-12.7)
[2016-10-27 14:10] LABS: PARTIAL THROMBOPLASTIN TIME > 170 SEC (23-34)
--- NOTE | 2016-10-27 14:35 | NUR ---
CALLED [facility] TO CONFIRM IF PT LIVES THERE, THE STAFF STATES HE DOES.
--- NOTE | 2016-10-27 14:56 | NUR ---
CALLED [facility] FOR TRANSPORT BACK TO [facility], [place] [facility] 20-30 MIN
--- NOTE | 2016-10-27 15:22 | NUR ---
IV removed. Catheter intact and site benign. Pressure and 4x4 applied to site. No bleeding noted.
--- NOTE | 2016-10-27 15:22 | NUR ---
Patient discharged to home in stable condition. Written and verbal after care instructions given. Patient verbalizes understanding of instruction. Pt picked up by [facility] transfer to [facility]
--- NOTE | 2016-10-27 15:40 | NUR ---
PT TAKEN TO CT VIA [facility]
[2016-10-27 16:18] VITALS: BP 140/70
[2016-10-27] MEDS ORDERED: HYDROCODONE/APAP 5/325MG 1 EACH TABLET ONE (17:24)
--- NOTE | 2016-10-27 17:28 | NUR ---
VERBAL ORDER FROM DR LOCKE 2 TABS HYDROCODONE 5/325 MG PO GIVEN FOR PAIN MGMT
== END 2016-10-27 17:39 | disposition home or self-care (01) ==
LOC: ER 12:14
DX: M54.5 Low back pain (principal); G89.29 Other chronic pain; R79.89 Other specified abnormal findings of blood chemistry; I12.0 Hypertensive chronic kidney disease with stage 5 chronic kidney disease or end stage renal disease; N18.6 End stage renal disease; E11.9 Type 2 diabetes mellitus without complications; R53.1 Weakness; Z79.4 Long term (current) use of insulin; Z99.2 Dependence on renal dialysis; Z88.8 Allergy status to other drugs, medicaments and biological substances
CPT/HCPCS: 36415; 71010-TC; 80048-TC; 80076-TC; 84484-TC; 85025-TC; 85730-TC; A4606; J2270; Z7610